=== PATIENT | female | born 1955 | race Two or more races ===

== ENCOUNTER 2018-03-29 01:17 | Emergency (ER) | payer OTHER ==
[~2018-03-29] VITALS: Ht 154.9 cm; Wt 77.2 kg
[2018-03-29] MEDS ORDERED: LIDOCAINE 1%-EPI 1:100K, 30ML ONE (01:37)
[2018-03-29] MEDS ORDERED: DIPH,PERTUSS(ACELL),TET VAC/PF 0.5 ML IM-VACC ONE ×2 (01:37→02:00)
[2018-03-29] MEDS ORDERED: LIDOCAINE 1%-EPI 1:100K, 30ML INFIL ONE (02:00)
[2018-03-29] MEDS ORDERED: BACITRACIN ZINC OINT 500U/GM, 0.9 GM ONE (03:45)
[2018-03-29 03:48] VITALS: BP 120/64
== END 2018-03-29 03:51 | disposition home or self-care (01) ==
LOC: ED 03:47
DX: S01.112A Laceration without foreign body of left eyelid and periocular area, initial encounter (principal); F17.200 Nicotine dependence, unspecified, uncomplicated; W01.0XXA Fall on same level from slipping, tripping and stumbling without subsequent striking against object, initial encounter; Y93.89 Activity, other specified; Y92.009 Unspecified place in unspecified non-institutional (private) residence as the place of occurrence of the external cause; Y99.8 Other external cause status
CPT/HCPCS: 12053; 90471; 90715

== ENCOUNTER 2018-04-02 13:18 | Emergency (ER) | payer OTHER ==
[~2018-04-02] VITALS: Ht 154.9 cm; Wt 76.8 kg
[2018-04-02 13:21] VITALS: BP 129/81
== END 2018-04-02 14:15 ==
LOC: ED 14:09
DX: S01.112D Laceration without foreign body of left eyelid and periocular area, subsequent encounter (principal); X58.XXXD Exposure to other specified factors, subsequent encounter
CPT/HCPCS: 99283